=== PATIENT | male | born 1950 | race Caucasian/White ===

== ENCOUNTER → 2022-10-09 | Outpatient (CLI) | payer MEDICARE, OTHER, SELFPAY ==
--- NOTE | 2022-10-09 13:11 | MRI_ITS ---
INDICATION: pain EXAMINATION: MRI - MR Spine Lumbar W/O Contrast TECHNIQUE: Multiplanar and multisequence MR images of the lumbar spine. IV Contrast Dosage and Agent: None. COMPARISON: Radiographs 09/22/2022. FINDINGS: No fracture or acute osseous abnormality. Alignment anatomic. Degenerative endplate irregularity and signal changes along the right aspect of L4-5. Conus terminates at the level of the mid L1 vertebral body with normal contour and signal. At L1-2, mild bilateral facet degeneration causes no significant narrowing. At L2-3, diffuse disc bulge with underlying osteophytes and moderate bilateral facet degeneration causes only mild narrowing of the spinal canal and foramina. Disc and osteophyte abut the exiting left L2 nerve root in the extraforaminal zone. At L3-4, small diffuse disc bulge with underlying osteophytes combined with severe bilateral facet degeneration with degenerative buckling of the ligamentum flavum, and prominent epidural fat, to cause high-grade narrowing of the spinal canal, crowding the cauda equina but with some CSF visible adjacent to the nerve roots. Only mild foraminal narrowing. At L4-5, diffuse disc bulge with underlying osteophytes and moderate bilateral facet degeneration with degenerative buckling of the ligamentum flavum and epidural fat causes mild spinal canal narrowing. Disc and osteophyte extend into and cause moderate right and mild left foraminal narrowing. At L5-S1, disc bulge with underlying osteophytes and mild facet degeneration causes mild spinal canal narrowing. Disc and osteophyte extend into and cause moderate bilateral foraminal narrowing. No acute finding in the paraspinal soft tissues. Right greater than left renal cysts partially visible. MRI/Spine Lumbar (Routine) IMPRESSION: Multilevel degenerative changes most prominent at L3-4 where there is high-grade spinal canal narrowing. Electronically Signed: Edward Hoffman MD at 1:01 EST Reading Location ID and State: [address] [place] [address] Tel , Service support ,
== END | disposition home or self-care (01) ==
LOC: MRI 10-11 07:54
PROVIDERS: PCP Family Medicine; Visit Provider Orthopaedic Surgery
DX: M48.061 Spinal stenosis, lumbar region without neurogenic claudication (principal); M51.27 Other intervertebral disc displacement, lumbosacral region; N28.1 Cyst of kidney, acquired; M47.816 Spondylosis without myelopathy or radiculopathy, lumbar region; M51.26 Other intervertebral disc displacement, lumbar region
CPT/HCPCS: 72148